=== PATIENT | female | born 1960 | race American Indian/Alaskan Native ===

== ENCOUNTER 2016-05-03 19:56 | Emergency (ER) | payer MEDICAID ==
[2016-05-03] MEDS ORDERED: MORPHINE IV ONE (20:12)
[2016-05-03] MEDS ORDERED: TORADOL IV ONE (20:17)
--- NOTE | 2016-05-03 20:30 | Emergency Department Report ---
ED Lower Extremity HPI - General Chief Complaint: Extremity Injury, Lower Stated Complaint: DIFFICULTY IN BREATHING/LEFT FOOT PAIN Time Seen by Provider: 05/03/16 20:03 Source: patient Mode of arrival: Stretcher Limitations: No Limitations - History of Present Illness Initial Comments: 55-year-old female presents to the emergency department via EMS complaining of left foot pain. Patient states that she fell out of her bed last night landing awkwardly on her left foot. Patient states she is unable to bear weight on the foot secondary to pain. There are no other complaints. Patient denies chest pain, cough, or shortness of breath. Patient wears 2 L of oxygen via nasal cannula at home at all times. MD Complaint: foot injury -: Sudden, Last night Injury: Foot: Left Type of Injury: unknown Place: home Severity: moderate Improves With: nothing Worsens With: weight bearing, palpation Context: fall Associated Symptoms: unable to bear weight - Related Data Allergies Allergy/AdvReac Type Severity Reaction Status Date / Time morphine Allergy Itching Verified 05/03/16 20:17 ED Review of Systems ROS: Stated complaint: DIFFICULTY IN BREATHING/LEFT FOOT PAIN Other details as noted in HPI Comment: All other systems reviewed and negative Musculoskeletal: as per HPI (left foot pain) ED Past Medical Hx - Past Medical History Previous Medical History?: Yes Hx Hypertension: Yes Hx Congestive Heart Failure: Yes Hx Liver Disease: Yes (cirrhosis) Hx Arthritis: Yes Hx COPD: Yes - Surgical History Past Surgical History?: Yes Hx Pacemaker: Yes - Family History Family history: no significant - Social History Smoking Status: Current Every Day Smoker Substance Use Type: Alcohol ED Physical Exam - General Limitations: No Limitations General appearance: alert, in distress (mild distress secondary to pain) - Head Head exam: Present: atraumatic, normocephalic - Eye Eye exam: Present: normal appearance, PERRL, EOMI - ENT ENT exam: Present: normal exam, normal orophraynx, mucous membranes moist - Neck Neck exam: Present: normal inspection, full ROM. Absent: tenderness - Respiratory Respiratory exam: Present: normal lung sounds bilaterally. Absent: respiratory distress, chest wall tenderness, accessory muscle use - Cardiovascular Cardiovascular Exam: Present: regular rate, normal rhythm, normal heart sounds - GI/Abdominal GI/Abdominal exam: Present: soft, normal bowel sounds. Absent: distended, tenderness - Extremities Exam Extremities exam: Present: other (edema noted to the dorsal surface of the left foot. This area is tender to palpation. There is no ecchymosis noted. No deformity is noted. Remainder of extremities are unremarkable.) - Back Exam Back exam: Present: normal inspection, full ROM. Absent: tenderness - Neurological Exam Neurological exam: Present: alert, oriented X3. Absent: motor sensory deficit - Skin Skin exam: Present: warm, dry, intact ED Course Vital Signs 05/03/16 20:17 Pulse Rate 60 Respiratory 16 Rate Blood Pressure 156/91 O2 Sat by Pulse 99 Oximetry ED Lower Extremity MDM - EKG Data -: EKG Interpreted by Me EKG shows normal: axis, intervals, QRS complexes Rate: normal - EKG Data When compared to previous EKG there are: previous EKG unavailable Interpretation: nonspecific ST-T wave ladan, other (atrial pacemaker) - Radiology Data Radiology results: image reviewed interpreted by me: X-ray of the left foot reveals minimally displaced fractures at the base of the second and third metatarsals. - Medical Decision Making Imaging results reviewed and discussed with the patient. Patient will be placed in a walking boot and discharged home to follow up with orthopedics. - Differential Diagnosis contusion, fracture, strain Critical care attestation.: If time is entered above; I have spent that time in minutes in the direct care of this critically ill patient, excluding procedure time. ED Disposition Clinical Impression: Closed fracture of metatarsal of left foot Qualifiers: Encounter type: initial encounter Metatarsal bone: third Fracture alignment: nondisplaced Qualified Code(s): S92.335A - Nondisplaced fracture of third metatarsal bone, left foot, initial encounter for closed fracture Disposition: DISCHARGED TO HOME OR SELFCARE Is pt being admited?: No Condition: Stable Instructions: Foot Fracture in Adults (ED) Referrals: VIRAL RUVALCABA MD [Staff Physician] - 3-5 Days Time of Disposition: 21:07
[2016-05-03] MEDS ORDERED: PERCOCET 5/325 PO ONE (21:04)
[2016-05-03 21:53] VITALS: BP 131/100
--- NOTE | 2016-05-04 09:18 | XRay Report ---
Left foot 3 views: History: Left foot pain status post fall. Findings: Fracture is noted the base of the second and third metatarsal with arthritic changes of the first tarsometatarsal joint. Impression: Fracture base of second and third metatarsals.
== END 2016-05-03 22:49 | disposition home or self-care (01) ==
LOC: ED 19:56
DX: S92.335A Nondisplaced fracture of third metatarsal bone, left foot, initial encounter for closed fracture (principal); I10 Essential (primary) hypertension; I50.9 Heart failure, unspecified; J44.9 Chronic obstructive pulmonary disease, unspecified; F17.200 Nicotine dependence, unspecified, uncomplicated
CPT/HCPCS: 29515; 73630; 93005; 93010; 96374; 99284; J1885